=== PATIENT | male | born 1995 | race Caucasian/White ===

== ENCOUNTER 2018-06-04 06:10 | Day surgery (SDC) | payer BC ==
[~2018-06-04 06:10] MED LIST: DEXAMETHASONE SOD PHOSPHATE 10 MG/ML 1 ML VIAL IV ONE; DEXAMETHASONE SOD PHOSPHATE 4 MG/ML 1 ML VIAL IV ONE; FAMOTIDINE 20 MG/2 ML VIAL IV ONE; LACTATED RINGERS 1,000 ML IV SCH; MIDAZOLAM 2 MG/2 ML VIAL IV PRN; ONDANSETRON 4 MG/2 ML VIAL IVP ONE; SCOPOLAMINE 1.5MG/72HR PATCH TRANSDERM ONE; ceFAZolin 1,000 MG in DEXTROSE/WATER 1 50ML.BAG IV ONE
[2018-06-04] MEDS ORDERED: LIDOCAINE 1% 20 ML VIAL (10MG/ML) FOR IV START INTRADERMA ONE (06:41)
[2018-06-04] MEDS ORDERED: SUCCINYLCHOLINE CHLORIDE 100 MG/5 ML SYR IV ONE (07:18)
[2018-06-04] MEDS ORDERED: LIDOCAINE 1% INJ 10MG/ML (20 ML MDV) ONE (07:18)
[2018-06-04] MEDS ORDERED: PROPOFOL 10 MG/ML 20 ML VIAL IV ONE (07:18)
[2018-06-04] MEDS ORDERED: fentaNYL (PF) 50 MCG/ML 2 ML AMP ONE (07:18)
[2018-06-04] MEDS ORDERED: MIDAZOLAM 2 MG/2 ML VIAL ONE (07:18)
[2018-06-04] MEDS ORDERED: HYDROmorphone (PF) 1 MG/ML ONE (07:18)
--- NOTE | 2018-06-04 08:12 | P.OP ---
Date of Procedure: 06/04/18 Preoperative Diagnosis: Chronic tonsillitis Tonsillar hypertrophy Postoperative Diagnosis: Same Procedure(s) Performed: Tonsillectomy Anesthesia: GLORIA Surgeon: Ric Varela Estimated Blood Loss (ml): 3 Pathology: other (Tonsils) Condition: stable Disposition: PACU Indications for Procedure: This is a 23-year-old white male whose had difficulties with chronic and recurrent tonsillitis for multiple years however this is worsened this year. He also has notable tonsillar hypertrophy chronically Operative Findings: Tonsils +3.5 bilaterally. Adenoids mildly enlarged-left intact Description of Procedure: The patient was brought in the operative suite and placed in a supine position. The patient underwent induction of general anesthesia with oral endotracheal intubation without difficulty. The patient was prepped and draped in usual aseptic fashion. The McIvor mouth gag was placed soft palate was palpated and no submucous cleft was noted. The nasopharynx was examined with mirror exam the adenoids were only mildly hypertrophied and were therefore left intact. The left tonsil was grasped with curved Allis clamp and dissected from tonsillar fossa in a superior to inferior direction using both blunt and electrocautery dissection until the tonsil was removed. Once the tonsils removed hemostasis was gained to suction cautery. Once hemostasis was obtained attention was turned to the right the right tonsil was removed exactly as the left had been. Once hemostasis was gained with suction cautery. Once hemostasis was obtained and remained good in both tonsillar fossa the patient was suctioned in oral gastric fashion and the McIvor mouth gag was removed. The patient was allowed to emerge from general anesthesia having tolerated procedure well was extubated in the operating suite and transferred postoperative recovery area satisfactory condition.
[2018-06-04] MEDS ORDERED: LACTATED RINGERS 1,000 ML IV ONE (08:14)
[2018-06-04 08:28] VITALS: TEMP 98
[2018-06-04] MEDS: HYDROmorphone 1 MG/ML 1 ML SYRINGE IVP PRN ×2 (08:48→08:58)
[2018-06-04] MEDS ORDERED: HYDROcodone/APAP 7.5-325MG 1 EACH TAB PO ONE (09:32)
[2018-06-04 09:34] VITALS: RESP 18
[2018-06-04 10:06] VITALS: BP 104/70; PULSE 83
== END 2018-06-04 10:16 | disposition home or self-care (01) ==
LOC: OR 06:10
PROVIDERS: ATTEND Otolaryngology
DX: J03.91 Acute recurrent tonsillitis, unspecified (principal); J35.01 Chronic tonsillitis; J35.2 Hypertrophy of adenoids; Z79.899 Other long term (current) drug therapy; Z91.011 Allergy to milk products; Z91.048 Other nonmedicinal substance allergy status
CPT/HCPCS: 42826; J2250; J1100; J2405; J2001; J3010; J1170; J0690; J0330; J2704; 88304